=== PATIENT | male | born 1995 | race African-American/Black ===

== ENCOUNTER 2019-12-23 12:15 | Outpatient (CLI) | payer OTHER ==
[2019-12-23] MEDS ORDERED: GADOBUTROL 7.5 MMOL/7.5 ML VIAL ONE (12:28)
[2019-12-23] MEDS ORDERED: GADOBUTROL 7.5 MMOL/7.5 ML VIAL IVP ONE (13:33)
--- NOTE | 2019-12-24 05:42 | MRI Report ---
Reason: BAN INVOLUNTARY MOVEMENT Procedure Date: 12/23/2019 Accession Number: [id number] / [id number] Procedure: MRI - Thoracic Spine W/WO CPT Code: Final Report FULL RESULT: EXAM: MRI THORACIC SPINE WITHOUT AND WITH CONTRAST EXAM DATE: 12/23/2019 01:52 PM. CLINICAL HISTORY: Tremors, INVOLUNTARY MOVEMENT. COMPARISONS: None. TECHNIQUE: Multiplanar, multisequence T1-weighted and fluid-sensitive sequences of the thoracic spine from C7 to L1 before and after administration of intravenous contrast. Other: None. IV contrast: 7 mL Gadavist. FINDINGS: Spinal Cord: No signal abnormality in the visualized spinal cord. Alignment: No scoliosis or spondylolisthesis. Bone Marrow: No gross fractures or bone lesion. No bone marrow edema or abnormal enhancement. Disk Levels/Facets: There is no disk protrusion. No central canal or neural foraminal narrowing. Spinal Canal: No enhancing masses within the spinal canal. No epidural abscess. Musculature: Normal. No edema, enhancement, or fatty atrophy. Other: The visualized lungs, mediastinum, and abdominal cavity are unremarkable. IMPRESSION: Unremarkable thoracic spine MRI. No cord signal abnormality. No abnormal enhancement. [facility]
== END 2019-12-23 12:16 | disposition home or self-care (01) ==
LOC: DI 12:15
PROVIDERS: ATTEND Student in an Organized Health Care Education/Training Program
DX: R25.8 Other abnormal involuntary movements (principal); R29.2 Abnormal reflex
CPT/HCPCS: 72157; A9585

== ENCOUNTER 2019-12-24 12:07 | Outpatient (CLI) | payer OTHER ==
[2019-12-24] MEDS ORDERED: GADOBUTROL 7.5 MMOL/7.5 ML VIAL ONE (12:18)
[2019-12-24] MEDS ORDERED: GADOBUTROL 7.5 MMOL/7.5 ML VIAL IVP ONE (13:02)
--- NOTE | 2019-12-25 06:14 | MRI Report ---
Reason: ABN INVOLUNTARY MOVEMENTS Procedure Date: 12/24/2019 Accession Number: [id number] / [id number] Procedure: MRI - Cervical Spine W/WO CPT Code: Final Report FULL RESULT: EXAM: MRI CERVICAL SPINE WITHOUT AND WITH CONTRAST EXAM DATE: 12/24/2019 01:00 PM. CLINICAL HISTORY: ABNORMAL INVOLUNTARY MOVEMENTS. COMPARISON: None. TECHNIQUE: Multiplanar, multisequence T1-weighted and fluid-sensitive sequences of the cervical spine before and after administration of intravenous contrast. Other: None. IV contrast: 7 cc Gadavist. FINDINGS: Neurologic Structures: The visualized posterior fossa structures are unremarkable. No signal abnormality in the visualized spinal cord. Alignment: No scoliosis or spondylolisthesis. Bone Marrow: No gross fractures or bone lesions. No marrow edema or abnormal enhancement. Interspace Levels/Facets: C1-C2: Unremarkable. C2-C3: Unremarkable. C3-C4: Unremarkable. C4-C5: Unremarkable. C5-C6: Unremarkable. C6-C7: Unremarkable. C7-T1: Unremarkable. Spinal Canal: No enhancing lesions within the spinal canal. No epidural abscess. Musculature: Normal. No edema, enhancement, or fatty atrophy. Other: The paravertebral and prevertebral soft tissues are normal. IMPRESSION: Unremarkable cervical spine MRI. No abnormal enhancement. [facility]
== END 2019-12-24 12:08 | disposition home or self-care (01) ==
LOC: DI 12:07
PROVIDERS: ATTEND Student in an Organized Health Care Education/Training Program
DX: R25.8 Other abnormal involuntary movements (principal); R29.2 Abnormal reflex
CPT/HCPCS: 72156; A9585

== ENCOUNTER 2019-12-25 12:06 | Outpatient (CLI) | payer OTHER ==
[2019-12-25] MEDS ORDERED: GADOBUTROL 7.5 MMOL/7.5 ML VIAL ONE (12:11)
[2019-12-25] MEDS ORDERED: GADOBUTROL 7.5 MMOL/7.5 ML VIAL IVP ONE (13:08)
--- NOTE | 2019-12-25 15:06 | MRI Report ---
Reason: ABN INVOLUNTARY MOVEMENTS Procedure Date: 12/25/2019 Accession Number: [id number] / [id number] Procedure: MRI - Brain W/WO CPT Code: Final Report FULL RESULT: MRI BRAIN WITHOUT AND WITH CONTRAST INDICATION: 24-year-old male. Abnormal involuntary movements. TECHNIQUE: 1. Sagittal T1 3D. 2. Thin slice coronal STIR and T2 FLAIR (hippocampi). 3. Axial T1 3D, FLAIR, T2, T2* GRE and DWI. 4. 7 cc IV Gadavist. Post contrast T1 3D MP RAGE and T1 spin-echo axials. COMPARISON: None. FINDINGS: Imaging has been performed using seizure imaging protocol. Brain morphology is normal. Ventricular size is normal. No focal cortical dysplasia or jasso matter heterotopia is identified on the T1 3D sequence. On the coronal sequences by visual inspection, the hippocampi appear symmetric in size without obvious asymmetric volume loss on the left or the right. The hippocampal architecture is preserved bilaterally. No abnormal FLAIR hyperintensity is identified in either hippocampus to suggest the presence of gliosis. There is no evidence of mesial temporal sclerosis. The signal intensity of the cortex and white matter appears normal throughout. No focal pathology is identified. There appear to be flow voids for the main intracranial arteries. No abnormal diffusion restriction is demonstrated. There is no evidence of acute or chronic hemorrhage on the T2* GRE sequence. No enhancing space-occupying mass lesion is demonstrated. No pathologic meningeal or cranial nerve enhancement is identified. There appears to be normal intravascular contrast enhancement in the dural venous sinuses and deep venous structures. This effectively excludes the possibility of dural venous sinus thrombosis. Limited evaluation of the pituitary reveals no obvious pathology. The parasellar structures have a normal appearance. Limited evaluation of the orbits reveals no gross pathology. Mild mucosal thickening is seen scattered throughout the ethmoid air cells. The paranasal sinuses are otherwise clear. No mastoid or middle ear effusion is demonstrated. IMPRESSION: Normal brain MRI.
== END 2019-12-25 12:07 | disposition home or self-care (01) ==
LOC: DI 12:06
PROVIDERS: ATTEND Student in an Organized Health Care Education/Training Program
DX: R25.8 Other abnormal involuntary movements (principal)
CPT/HCPCS: 70553; A9585